=== PATIENT | female | born 1990 | race Caucasian/White ===

== ENCOUNTER 2018-02-28 12:33 | Emergency (ER) | payer OTHER ==
[~2018-02-28] VITALS: Ht 170.2 cm; Wt 90.7 kg
[~2018-02-28 12:33] MED LIST: CORTISPORIN-TC10 ML OTIC
[2018-02-28] MEDS ORDERED: ZITHROMAX250 MG PO (14:03)
== END 2018-02-28 14:30 | disposition home or self-care (01) ==
LOC: ED 12:33
DX: J20.9 Acute bronchitis, unspecified (principal); F17.200 Nicotine dependence, unspecified, uncomplicated
CPT/HCPCS: 71046; 99283; 99406

== ENCOUNTER 2024-11-08 09:43 | Emergency (ER) | payer OTHER ==
[~2024-11-08] VITALS: Ht 170.2 cm; Wt 90.0 kg
[~2024-11-08 09:43] MED LIST changes: +ZITHROMAX250 MG PO
--- OUTSIDE RECORDS SUMMARY | 2024-11-08 09:44 | XMS ---
PreManage Notification: [place] Security Patient Companion Events No recent Security Events currently on file CRITERIA MET - [facility] [place] - 2 Visits in 30 Days CARE PROVIDERS -[facility] Dentist: [employer] [place] [facility] [place] PHONE: [phone] -[place]- Dentist: [employer] [place] [facility] PHONE: [phone] [facility]: [facility] ([facility]) PHONE: [phone] MALORIE MEDINA [facility] Current PHONE: Unknown Keyshawn has no Care Guidelines for this patient. Linda VISIT COUNT (12 MO.) 1 [facility]LINE [facility] TOTAL 2 NOTE: Visits indicate total known visits. ED/UCC VISIT TRACKING (12 MO.) 11/08/2024 09:43 [facility]LINE [facility] TYPE: Emergency COMPLAINT: - ABDOMINAL PAIN 11/07/2024 16:59 [facility] TYPE: Emergency DIAGNOSES: - Abdominal Pain - Blood In Stool - blood in stool, stomach pain - Rectal Pain INPATIENT VISIT TRACKING (12 MO.) No inpatient visits to display in this time frame [email or web address]
[2024-11-08] MEDS ORDERED: ondansetron HCL 4 MG/2 ML VIAL IV ONE (10:00)
[2024-11-08 10:03] LABS: BASOPHILS 0.4 % (0.1-1.2); EOSINOPHILS 1.2 % (0.7-5.8); HEMATOCRIT 38.9 % (34.1-44.9); HEMOGLOBIN 12.9 g/dL (11.2-15.7); LYMPHOCYTES 28.9 % (19.3-51.7); MCH 27.4 PG (25.6-32.2); MCHC 33.2 g/dL (32.2-35.5); MCV 82.6 fL (79.4-94.8); MONOCYTES 8.6 % (4.7-12.5); NEUTROPHILS 60.8 % (34.0-71.1); PLATELET COUNT 324 K/uL (182-369); RBC 4.71 M/uL (3.93-5.22)
[2024-11-08 10:16] LABS: ALBUMIN/GLOBULIN RATIO 1.05 (1.1-2.4); ANION GAP 14.5 (7-21); BILIRUBIN, TOTAL 0.4 mg/dL (0.2-1.0); BUN/CREATININE RATIO 18.18 (6.0-28.6); CALCIUM 9.1 mg/dL (8.5-10.1); CREATININE, SERUM 0.88 mg/dL (0.55-1.02); POTASSIUM 4.5 mmol/L (3.5-5.1); PROTEIN, TOTAL 7.8 g/dL (6.4-8.2)
[2024-11-08] MEDS ORDERED: OMEPRAZOLE20 MG PO (10:16)
[2024-11-08 11:01] LABS: BILIRUBIN, URINE NEGATIVE (negative); BLOOD/HGB, URINE NEGATIVE (Negative); KETONE, URINE NEGATIVE (Negative); LEUK ESTERASE, URINE NEGATIVE (negative); NITRITE, URINE NEGATIVE (negative)
[2024-11-08 11:48] VITALS: BP 106/74
== END 2024-11-08 11:49 | disposition home or self-care (01) ==
LOC: ED 09:43
PROVIDERS: Emergency Medicine
DX: R10.11 Right upper quadrant pain (principal); F17.200 Nicotine dependence, unspecified, uncomplicated
CPT/HCPCS: 36415; 74177; 80053; 81003; 83690; 84703; 85025; 99284-25; Q9967